=== PATIENT | male | born 1955 | race American Indian/Alaskan Native ===

== ENCOUNTER 2018-06-19 09:56 | Emergency (ER) | payer OTHER, MEDICARE ==
[2018-06-19 10:07] VITALS: BP 158/104; PULSE 77; RESP 18; TEMP 98.5; O2SAT 99
--- NOTE | 2018-06-19 11:57 | CT ---
Date of service: 06/19/2018 PROCEDURE: CT Cervical Spine without contrast HISTORY: pain and clicking in th neck COMPARISON: None available. TECHNIQUE: Axial computed tomography images were obtained of the cervical spine without the use of intravenous contrast. Coronal and sagittal reformatted images were created and reviewed. Radiation dose: Total exam DLP = 464.46 mGy-cm. This CT exam was performed using one or more of the following dose reduction techniques: Automated exposure control, adjustment of the mA and/or kV according to patient size, and/or use of iterative reconstruction technique. FINDINGS: VERTEBRAE: There is straightening of the cervical spine with loss of normal cervical lordosis. Vertebral alignment is normal. Vertebral height is maintained. There is no acute fracture or traumatic anterior listhesis. The craniocervical junction is normal. 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 DISCS/SPINAL CANAL/NEURAL FORAMINA: There is multilevel degenerative disc disease from C4-5 to C6-7 with anterior osteophytes, reduced disc heights and multilevel facet arthropathy worse at C4-5 with moderate left neural foraminal narrowing and mild spinal canal stenosis PARASPINAL SOFT TISSUES: The paraspinous soft tissues are normal. OTHER FINDINGS: No apical pneumothorax. IMPRESSION: No acute fracture or traumatic anterior listhesis. Straightening of the cervical spine may be positional or related to muscle spasm. Multilevel degenerative disc disease from C4-5 to C6-7 worse at C4-5 with moderate left neural foraminal narrowing and mild spinal canal stenosis.
[2018-06-19] MEDS ORDERED: Lidocaine 5% Patch TD STA (12:02)
[2018-06-19] MEDS ORDERED: Lidocaine 5% Patch TD ONE (12:05)
--- NOTE | 2018-06-19 12:06 | C.PDOC ---
History Of Present Illness 62 y/o male presents to the ER complaining of neck pain which has been present for the past few days. Patient states that the pain is worse with movement. Patient reports that he heard a "popping" sound in his neck. Denies having weakness, numbness, fever, and chills.Of note, patient has history of spinal stenosis. Time Seen by Provider: 06/19/18 10:17 Chief Complaint (Nursing): Upper Extremity Problem/Injury History Per: Patient History/Exam Limitations: no limitations Onset/Duration Of Symptoms: Days Current Symptoms Are (Timing): Still Present Severity: Moderate Past Medical History Reviewed: Historical Data, Nursing Documentation, Vital Signs Vital Signs: Last Vital Signs Temp 98.5 F 06/19/18 10:02 Pulse 77 06/19/18 10:02 Resp 18 06/19/18 10:02 BP 158/104 H 06/19/18 10:02 Pulse Ox 99 06/19/18 10:02 - Medical History PMH: Atrial Fibrillation (S/P ablation 10/2014), Back Problems, Bipolar Disorder, Bronchitis, Cardia Arrhythmia, Depression, HTN Denies: Crohn's Disease, Diabetes, Diverticulitis, Gastritis, Gall Bladder Disease, Hepatitis, HIV, Pancreatitis, Chronic Kidney Disease, Seizures, Sexually Transmitted Disease Other Surgeries: Hx of surgeries - [facility] ALCOHOL DETOXIFICATION (03/26/13) CLOSED ENDOSCOPIC BIOPSY OF LARGE INTESTINE (03/03/15) ESOPHAGOGASTRODUODENOSCOPY [EGD] W/CLOSED BIOPSY (03/03/15) LEFT HEART CARDIAC CATH (11/25/14) LT HEART ANGIOCARDIOGRAM (11/25/14) Family History: States: No Known Family Hx - Social History Hx Tobacco Use: Yes (2 cigarettes daily) Hx Alcohol Use: Yes Hx Substance Use: No - Immunization History Hx Tetanus Toxoid Vaccination: No Hx Influenza Vaccination: No Hx Pneumococcal Vaccination: No Review Of Systems Except As Marked, All Systems Reviewed And Found Negative. Constitutional: Negative for: Fever, Chills Musculoskeletal: Positive for: Neck Pain Neurological: Negative for: Weakness, Numbness Physical Exam - Physical Exam Appears: Non-toxic, No Acute Distress Skin: Normal Color, Warm, Dry Head: Atraumatic, Normacephalic Eye(s): bilateral: Normal Inspection Nose: Normal Oral Mucosa: Moist Neck: Decreased ROM (decreased ROM secondary to pain), No Midline Cervical Tenderness, No Step Off Deformity, Supple, Other (stiff) Chest: Symmetrical Cardiovascular: Rhythm Regular Respiratory: Normal Breath Sounds, No Rales, No Rhonchi, No Wheezing Neurological/Psych: Oriented x3, Normal Speech ED Course And Treatment O2 Sat by Pulse Oximetry: 99 (RA) Pulse Ox Interpretation: Normal - CT Scan/US CT- Cervical Spine Other Rad Studies (CT/US): Read By Radiologist, Radiology Report Reviewed CT/US Interpretation: Date of service: 06/19/2018. PROCEDURE: CT Cervical Spine without contrast. HISTORY: pain and clicking in th neck. COMPARISON: None available. TECHNIQUE: Axial computed tomography images were obtained of the cervical spine without the use of intravenous contrast. Coronal and sagittal reformatted images were created and reviewed. Radiation dose: Total exam DLP = 464.46 mGy-cm. This CT exam was performed using one or more of the following dose reduction techniques: Automated exposure control, adjustment of the mA and/or kV according to patient size, and/or use of iterative reconstruction technique. FINDINGS: VERTEBRAE: There is straightening of the cervical spine with loss of normal cervical lordosis. Vertebral alignment is normal. Vertebral height is maintained. There is no acute fracture or traumatic anterior listhesis. The craniocervical junction is normal. 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 DISCS/SPINAL C ANAL/NEURAL FORAMINA: There is multilevel degenerative disc disease from C4-5 to C6-7 with anterior osteophytes, reduced disc heights and multilevel facet arthropathy worse at C4-5 with moderate left neural foraminal narrowing and mild spinal canal stenosis. PARASPINAL SOFT TISSUES: The paraspinous soft tissues are normal. OTHER FINDINGS: No apical pneumothorax. IMPRESSION: No acute fracture or traumatic anterior listhesis. Straightening of the cervical spine may be positional or related to muscle spasm. Multilevel degenerative disc disease from C4-5 to C6-7 worse at C4-5 with moderate left neural foraminal narrowing and mild spinal canal stenosis. Medical Decision Making Medical Decision Making: Plan: --H-[id number]-Snfwqlrt Spine --Lidoderm Patch Updates: Patient has been discharged and instructed to follow up with PMD for physical therapy referral. Disposition Counseled Patient/Family Regarding: Studies Performed, Diagnosis, Need For Followup, Rx Given - Disposition Referrals: Yahir Biggs [Staff Provider] - Disposition: HOME/ ROUTINE Disposition Time: 12:03 Condition: STABLE Additional Instructions: Follow up with your doctor for physical therapy referral. Prescriptions: Cyclobenzaprine [Cyclobenzaprine HCl] 10 mg PO TID #12 tab Instructions: Osteoarthritis (DC) Forms: [facility] (Georgian), General Discharge Instructions - POA Present On Arrival: None - Clinical Impression Clinical Impression: DJD (degenerative joint disease) of cervical spine - Scribe Statement The provider has reviewed the documentation as recorded by the Gabriella Bradford Provider Attestation: All medical record entries made by the Byronibe were at my direction and personally dictated by me. I have reviewed the chart and agree that the record accurately reflects my personal performance of the history, physical exam, medical decision making, and the department course for this patient. I have also personally directed, reviewed, and agree with the discharge instructions and disposition.
== END 2018-06-19 12:11 | disposition home or self-care (01) ==
LOC: C.ER 09:56
DX: M47.892 Other spondylosis, cervical region (principal)